=== PATIENT | female | born 1990 | race Caucasian/White ===

== ENCOUNTER → 2021-02-08 | Outpatient (CLI) | payer MEDICAID ==
[~2021-02-08] MED LIST: NITR-65 PO; OMEP-10 PO; ONDAN4ODT PO; PREN1TAB39 PO
== END ==
LOC: WOUNDCARE 09:23
PROVIDERS: ATTEND Surgery
DX: L98.492 Non-pressure chronic ulcer of skin of other sites with fat layer exposed (principal); T63.331A Toxic effect of venom of brown recluse spider, accidental (unintentional), initial encounter; E66.01 Morbid (severe) obesity due to excess calories; Z68.42 Body mass index [BMI] 45.0-49.9, adult
CPT/HCPCS: 11042

== ENCOUNTER → 2021-02-15 | Outpatient (CLI) | payer MEDICAID | LOC: WOUNDCARE 14:50 | PROVIDERS: ATTEND Surgery | DX: L98.492 Non-pressure chronic ulcer of skin of other sites with fat layer exposed (principal); T63.331A Toxic effect of venom of brown recluse spider, accidental (unintentional), initial encounter; E66.01 Morbid (severe) obesity due to excess calories; I96 Gangrene, not elsewhere classified | CPT/HCPCS: 11042 ==

== ENCOUNTER → 2021-02-22 | Outpatient (CLI) | payer MEDICAID | LOC: WOUNDCARE 14:09 | PROVIDERS: ATTEND Surgery | DX: L98.492 Non-pressure chronic ulcer of skin of other sites with fat layer exposed (principal); I96 Gangrene, not elsewhere classified; T63.331A Toxic effect of venom of brown recluse spider, accidental (unintentional), initial encounter; E66.01 Morbid (severe) obesity due to excess calories; Z68.44 Body mass index [BMI] 60.0-69.9, adult | CPT/HCPCS: 99212 ==

== ENCOUNTER → 2021-03-01 | Outpatient (CLI) | payer MEDICAID | LOC: WOUNDCARE 13:15 | PROVIDERS: ATTEND Surgery | DX: L98.492 Non-pressure chronic ulcer of skin of other sites with fat layer exposed (principal); T63.331A Toxic effect of venom of brown recluse spider, accidental (unintentional), initial encounter; E66.01 Morbid (severe) obesity due to excess calories | CPT/HCPCS: 99212 ==